=== PATIENT | male | born 1990 | race Asian ===

== ENCOUNTER 2021-11-25 13:43 | Emergency (ER) | payer OTHER ==
[~2021-11-25] VITALS: Ht 172.7 cm; Wt 97.1 kg
[2021-11-25 13:48] VITALS: TEMP 98.1
[2021-11-25 14:28] LABS: PLATELET COUNT 221 K/uL (142-355)
[2021-11-25 14:39] LABS: POTASSIUM 3.4 mmol/L (3.6-5.2)
[2021-11-25 15:20] VITALS: BP 136/78
== END 2021-11-25 15:20 | disposition home or self-care (01) ==
LOC: ED 13:43
PROVIDERS: Emergency Medicine Emergency Medical Services
DX: R10.11 Right upper quadrant pain (principal); E87.6 Hypokalemia
CPT/HCPCS: 80053; 81002; 82150; 83690; 85027; 96360; 96374; 96375; 99283; 99284; J3490

== ENCOUNTER 2021-12-16 12:34 | Emergency (ER) | payer OTHER ==
[~2021-12-16] VITALS: Ht 172.7 cm; Wt 97.1 kg
[2021-12-16 12:40] VITALS: BP 126/71; TEMP 97.7
== END 2021-12-16 13:53 | disposition home or self-care (01) ==
LOC: ED 12:34
DX: J10.1 Influenza due to other identified influenza virus with other respiratory manifestations (principal); F17.210 Nicotine dependence, cigarettes, uncomplicated
CPT/HCPCS: 87502; 96372; 99282; J1885